=== PATIENT | male | born 1945 | race Caucasian/White ===

== ENCOUNTER 2022-10-05 13:59 | Inpatient (IN) | payer OTHER ==
[2022-10-05 16:08] LABS: HEMATOCRIT 26.9 % (35.4-49); HEMOGLOBIN 9.5 G/dL (11.7-16.9); MCH 32.8 pg (25.7-33.7); MCHC 35.2 g/dl (32.0-35.9); MEAN PLT VOLUME 7.6 fl (7.5-11.1); PLATELET COUNT 290.6 10^3/uL (134-434); RBC 2.89 10^6/uL (4.00-5.60); WHITE BLOOD COUNT 9.5 10^3/uL (4.0-10.8)
[2022-10-05 16:15] LABS: ALBUMIN 3.3 g/dl (3.4-5.0); BILIRUBIN,TOTAL 0.7 mg/dl (0.2-1); CALCIUM 8.6 mg/dl (8.5-10); CREATININE 4.2 mg/dl (0.55-1.3)
[2022-10-05 16:50] LABS: PLATELET ESTIMATE ADEQUATE
[2022-10-05] MEDS ORDERED: SODIUM CHLORIDE 0.45% 1,000 ML IV SCH (17:45)
[2022-10-05 18:06] LABS: N-TERMINAL BNP 8409.4 pg/ml (5-450)
[2022-10-06 09:01] LABS: CALCIUM 8.3 mg/dl (8.5-10); CREATININE 3.7 mg/dl (0.55-1.3)
[2022-10-06 09:33] LABS: BASO % 1.2 % (0-2.0); HEMATOCRIT 23.3 % (35.4-49); HEMOGLOBIN 8.3 GM/dL (11.7-16.9); LYMPH % 12.1 % (8-40); MCH 32.5 pg (25.7-33.7); MCHC 35.4 g/dl (32.0-35.9); MEAN CELL VOLUME 91.7 fl (80-96); MEAN PLT VOLUME 7.7 fl (7.5-11.1); MONO % 11.9 % (3.8-10.2); NEUT % 70.8 % (42.8-82.8); PLATELET COUNT 243 10^3/uL (134-434); RBC 2.54 M/mm3 (4.00-5.60); WHITE BLOOD COUNT 6.3 K/mm3 (4.0-10.0)
[2022-10-06] MEDS ORDERED: KCL 10 MEQ IVPB 10 MEQ/100 ML INFUS.BAG IVPB SCH (10:30)
[2022-10-06 10:40] VITALS: BMI 21.3
[2022-10-06] MEDS ORDERED: SODIUM CHLORIDE 0.45%/POT 20 MEQ/1,000 ML INFUS.BAG IV SCH (10:45)
[2022-10-06] MEDS ORDERED: POTASSIUM CHLORIDE TABS 10 MEQ TABLET.ER (FP) PO ONE (11:00)
[2022-10-06] MEDS: TAMSULOSIN HCL 0.4 MG CAP PO SCH (12:07)
[2022-10-06] MEDS: FINASTERIDE 5 MG TABLET (FP) PO SCH (12:07)
[2022-10-07 08:32] LABS: ALBUMIN 2.6 g/dl (3.4-5.0); BILIRUBIN,TOTAL 0.8 mg/dl (0.2-1); CALCIUM 8.3 mg/dl (8.5-10); CREATININE 2.7 mg/dl (0.55-1.3); TOT PROT 4.8 g/dl (6.4-8.2); URIC ACID 7.6 mg/dl (2.6-7.2)
[2022-10-07] MEDS: TAMSULOSIN HCL 0.4 MG CAP PO SCH (08:43)
[2022-10-07] MEDS: FINASTERIDE 5 MG TABLET (FP) PO SCH (10:23)
[2022-10-07 11:40] LABS: BASO % 0.8 % (0-2.0); EOS % 4.4 % (0-4.5); LYMPH % 15.9 % (8-40); MCH 32.1 pg (25.7-33.7); MCHC 34.9 g/dl (32.0-35.9); MEAN PLT VOLUME 7.5 fl (7.5-11.1); MONO % 9.4 % (3.8-10.2); NEUT % 69.5 % (42.8-82.8); PLATELET COUNT 235 10^3/uL (134-434); RBC 2.49 M/mm3 (4.00-5.60); WHITE BLOOD COUNT 5.9 K/mm3 (4.0-10.0)
[2022-10-08] MEDS: FINASTERIDE 5 MG TABLET (FP) PO SCH (10:10)
[2022-10-08] MEDS: TAMSULOSIN HCL 0.4 MG CAP PO SCH (10:10)
[2022-10-08] MEDS ORDERED: ENOXAPARIN NA (PORCINE) 60 MG/0.6 ML DISP.SYRIN SQ SCH (10:45)
[2022-10-08 11:40] LABS: HEMATOCRIT 22.5 % (35.4-49); HEMOGLOBIN 8.1 G/dL (11.7-16.9); MCHC 35.8 g/dl (32.0-35.9); MEAN CELL VOLUME 92.1 fl (80-96); MEAN PLT VOLUME 7.6 fl (7.5-11.1); PLATELET COUNT 222.6 10^3/uL (134-434); RBC 2.44 10^6/uL (4.00-5.60); RDW 13.6 % (11.9-15.9); WHITE BLOOD COUNT 6.3 10^3/uL (4.0-10.8)
[2022-10-08] MEDS: APIXABAN 5 MG TABLET PO SCH ×2 (11:56→21:31)
[2022-10-08 12:00] LABS: ALBUMIN 2.5 g/dl (3.4-5.0); BILIRUBIN,TOTAL 0.6 mg/dl (0.2-1); CALCIUM 8.2 mg/dl (8.5-10); CREATININE 2.3 mg/dl (0.55-1.3); TOT PROT 4.9 g/dl (6.4-8.2)
[2022-10-08] MEDS ORDERED: POTASSIUM CHLORIDE TABS 20 MEQ TABLET.ER (FP) PO ONE (20:24)
[2022-10-09] MEDS: TAMSULOSIN HCL 0.4 MG CAP PO SCH (08:22)
[2022-10-09 09:24] LABS: ALBUMIN 2.7 g/dl (3.4-5.0); BILIRUBIN,TOTAL 0.7 mg/dl (0.2-1); CALCIUM 8.4 mg/dl (8.5-10); CREATININE 1.9 mg/dl (0.55-1.3); TOT PROT 5.3 g/dl (6.4-8.2)
[2022-10-09] MEDS: FINASTERIDE 5 MG TABLET (FP) PO SCH (09:27)
[2022-10-09] MEDS: APIXABAN 5 MG TABLET PO SCH ×2 (09:27→22:00)
[2022-10-09] MEDS: SODIUM CHLORIDE 0.45%/POT 20 MEQ/1,000 ML INFUS.BAG IV SCH (10:52)
[2022-10-09 11:38] LABS: BASO % 0.5 % (0-2.0); EOS % 0.8 % (0-4.5); HEMATOCRIT 26.3 % (35.4-49); HEMOGLOBIN 8.9 GM/dL (11.7-16.9); LYMPH % 10.3 % (8-40); MCH 31.2 pg (25.7-33.7); MCHC 33.6 g/dl (32.0-35.9); MEAN CELL VOLUME 92.8 fl (80-96); MEAN PLT VOLUME 7.5 fl (7.5-11.1); MONO % 13.1 % (3.8-10.2); NEUT % 75.3 % (42.8-82.8); PLATELET COUNT 241 10^3/uL (134-434); RBC 2.84 M/mm3 (4.00-5.60); RDW 13.2 % (11.9-15.9); WHITE BLOOD COUNT 8.1 K/mm3 (4.0-10.0)
[2022-10-09 20:01] VITALS: RESP 18
[2022-10-10 08:44] LABS: ALBUMIN 2.6 g/dl (3.4-5.0); BILIRUBIN,TOTAL 0.8 mg/dl (0.2-1); CALCIUM 8.2 mg/dl (8.5-10); CREATININE 1.6 mg/dl (0.55-1.3); TOT PROT 5.3 g/dl (6.4-8.2)
[2022-10-10] MEDS: APIXABAN 5 MG TABLET PO SCH ×2 (09:38→21:35)
[2022-10-10] MEDS: TAMSULOSIN HCL 0.4 MG CAP PO SCH ×2 (09:38→21:35)
[2022-10-10] MEDS: FINASTERIDE 5 MG TABLET (FP) PO SCH (09:38)
[2022-10-10 10:12] LABS: BASO % 0.5 % (0-2.0); HEMATOCRIT 24.5 % (35.4-49); HEMOGLOBIN 8.6 GM/dL (11.7-16.9); LYMPH % 10.3 % (8-40); MCH 31.9 pg (25.7-33.7); MCHC 34.8 g/dl (32.0-35.9); MEAN CELL VOLUME 91.6 fl (80-96); MEAN PLT VOLUME 7.8 fl (7.5-11.1); MONO % 10.9 % (3.8-10.2); NEUT % 75.3 % (42.8-82.8); PLATELET COUNT 243 10^3/uL (134-434); RBC 2.68 M/mm3 (4.00-5.60)
[2022-10-10] MEDS ORDERED: POTASSIUM CHLORIDE TABS 10 MEQ TABLET.ER (FP) PO ONE (11:45)
[2022-10-10] MEDS: SODIUM CHLORIDE 0.45%/POT 20 MEQ/1,000 ML INFUS.BAG IV SCH (11:49)
[2022-10-10 21:17] LABS: MAGNESIUM 1.4 mg/dL (1.8-2.4)
[2022-10-11] MEDS ORDERED: MAGNESIUM SULF 50% (8.12 MEQ/2 ML-1 GM VIAL) IVPB ONE (07:19)
[2022-10-11] MEDS ORDERED: MAGNESIUM SULFATE IN WATER 2 GM/50 ML IVPB IVPB ONE (07:30)
[2022-10-11 08:25] LABS: CALCIUM 8.4 mg/dl (8.5-10); CREATININE 1.4 mg/dl (0.55-1.3); MAGNESIUM 1.5 mg/dL (1.8-2.4); PHOSPHOROUS 3.5 mg/dl (2.5-4.9)
[2022-10-11] MEDS ORDERED: POTASSIUM CHLORIDE TABS 20 MEQ TABLET.ER (FP) PO ONE (09:00)
[2022-10-11 10:02] LABS: BASO % 0.7 % (0-2.0); EOS % 2.5 % (0-4.5); HEMOGLOBIN 8.1 GM/dL (11.7-16.9); LYMPH % 14.7 % (8-40); MCH 32.4 pg (25.7-33.7); MCHC 35.4 g/dl (32.0-35.9); MEAN CELL VOLUME 91.6 fl (80-96); MEAN PLT VOLUME 7.7 fl (7.5-11.1); MONO % 12.5 % (3.8-10.2); NEUT % 69.6 % (42.8-82.8); PLATELET COUNT 243 10^3/uL (134-434); RBC 2.51 M/mm3 (4.00-5.60); RDW 12.7 % (11.9-15.9); WHITE BLOOD COUNT 6.2 K/mm3 (4.0-10.0)
[2022-10-11] MEDS: FINASTERIDE 5 MG TABLET (FP) PO SCH (10:13)
[2022-10-11] MEDS: APIXABAN 5 MG TABLET PO SCH (10:13)
[2022-10-11] MEDS: TAMSULOSIN HCL 0.4 MG CAP PO SCH (10:13)
[2022-10-11 14:39] VITALS: BP 117/50; TEMP 98.4
[2022-10-11 15:39] VITALS: PULSE 67
== END 2022-10-11 17:21 | DRG 699 ==
LOC: FER 13:59 → FM/S 16:35
PROVIDERS: ADMIT Internal Medicine; ATTEND Internal Medicine
DX: N13.9 Obstructive and reflux uropathy, unspecified (principal); I82.431 Acute embolism and thrombosis of right popliteal vein; N17.9 Acute kidney failure, unspecified; N13.30 Unspecified hydronephrosis; N40.1 Benign prostatic hyperplasia with lower urinary tract symptoms; R33.9 Retention of urine, unspecified; G80.9 Cerebral palsy, unspecified; E87.6 Hypokalemia; I13.10 Hypertensive heart and chronic kidney disease without heart failure, with stage 1 through stage 4 chronic kidney disease, or unspecified chronic kidney disease; I87.8 Other specified disorders of veins; D64.9 Anemia, unspecified; N18.9 Chronic kidney disease, unspecified
CPT/HCPCS: 36415; 76775-TC; 80048; 80053; 81003; 81015; 82570; 82728; 83540; 83550; 83735; 83880; 84100; 84156; 84300; 84484; 84540; 84550; 85025; 85027; 86038; 86160; 87086; 87340; 87902; 93970-TC; 97116-GP; 97162-GP; 99285-25; C9803-CS; J3480; U0003; U0005

== ENCOUNTER 2022-12-19 04:09 | Day surgery (SDC) | payer OTHER ==
[2022-12-14 18:06] VITALS: BMI 22.0
[2022-12-19] MEDS ORDERED: PROPOFOL 40 ML ONE (07:33)
[2022-12-19] MEDS ORDERED: ceFAZolin SODIUM 1 GM VIAL IVPB ONE (08:32)
[2022-12-19] MEDS ORDERED: oxyCODONE HCL 5 MG TABLET PO PRN (09:03)
[2022-12-19] MEDS ORDERED: ACETAMINOPHEN 325 MG TABLET (FP) PO PRN (09:03)
[2022-12-19] MEDS ORDERED: LACTATED RINGERS SOLUTION 1,000 ML IV SCH (09:15)
[2022-12-19 09:41] VITALS: RESP 18
[2022-12-19] MEDS ORDERED: ELECTROLYTE-148 SOLN 1,000 ML IV SCH (10:45)
[2022-12-19 17:32] VITALS: BP 148/78; PULSE 68; TEMP 98.6
[2022-12-20] MEDS ORDERED: CHOLECALCIFEROL (VIT D3 5000 UNITS) 125 MCG TAB PO SCH (10:00)
[2022-12-20] MEDS ORDERED: FINASTERIDE 5 MG TABLET (FP) PO SCH (10:00)
[2022-12-20] MEDS ORDERED: TAMSULOSIN HCL 0.4 MG CAP PO SCH (10:00)
== END 2022-12-19 12:15 | disposition home or self-care (01) ==
LOC: JASU-SURG 04:09
PROVIDERS: ATTEND Urology
PROC: 0VT08ZZ Resection of Prostate, Via Natural or Artificial Opening Endoscopic (ICD-10-PCS; principal; 2022-12-19 08:00)
DX: N40.1 Benign prostatic hyperplasia with lower urinary tract symptoms (principal); R33.8 Other retention of urine
CPT/HCPCS: 86850; 86900; 86901; 88305-TC; 94760